=== PATIENT | male | born 1950 ===

== ENCOUNTER → 2018-06-13 18:51 | Outpatient (REF) | payer MEDICARE, OTHER, SELFPAY ==
[2018-06-13 19:17] LABS: Alanine Aminotransferase 31 IU/L (21-72); Albumin 3.9 g/dL (3.5-5.0); Albumin Globulin Ratio 1.8 (1.0-2.8); Alkaline Phosphatase 93 U/L (38-126); Aspartate Aminotransferase 18 IU/L (17-59); BUN Creatinine Ratio 17.5 (6-22); Bilirubin Total 0.4 mg/dL (0.2-1.3); Blood Urea Nitrogen 14 mg/dL (9-20); Calcium 9.4 mg/dL (8.4-10.2); Carbon Dioxide 34 mmol/L (22-32); Chloride 102 mmol/L (98-107); Cholesterol 189 mg/dL (140-199); Estimated Glomerular Filt Rate > 60.0 mL/min (>60); Globulin 2.2 g/dL (1.7-4.1); Glucose 94 mg/dL (80-110); HDL Cholesterol 31 mg/dL (40-60); HEMOLYSIS < 15 (0-50); LDL Cholesterol Calculated 129 mg/dL (<100); Potassium 4.4 mmol/L (3.4-5.1); Sodium 146 mmol/L (137-145); Total Protein 6.1 g/dL (6.3-8.2); Triglycerides 146 mg/dL (35-150)
[2018-06-13 19:48] LABS: Thyroid Stimulating Hormone 2.69 uIU/mL (0.47-4.68)
== END ==
LOC: LAB 18:51
PROVIDERS: Visit Provider Family Medicine
DX: H91.90 Unspecified hearing loss, unspecified ear (principal); R32 Unspecified urinary incontinence; N40.0 Benign prostatic hyperplasia without lower urinary tract symptoms; Z12.5 Encounter for screening for malignant neoplasm of prostate; I25.10 Atherosclerotic heart disease of native coronary artery without angina pectoris
CPT/HCPCS: 80053; 80061; 84153; 84443

== ENCOUNTER → 2018-07-03 14:20 | Outpatient (REF) | payer MEDICARE, OTHER, SELFPAY ==
[2018-07-03 15:11] LABS: Add Manual Diff / Slide Review NO; Basophils Percent Auto 1.3 % (0-2); Eosinophils Percent Auto 5.6 % (2-4); Hematocrit 39.2 % (41-53); Hemoglobin 12.8 g/dL (13.5-17.5); Mean Corpuscular HGB Conc 32.8 % (30-36); Mean Corpuscular Hemoglobin 29.2 PG (26-34); Monocytes Percent Auto 10.4 % (3-14); Neutrophils Absolute Auto 4300 /uL (3000-5900); Neutrophils Percent Auto 65.7 % (50-75); Platelet Count 335 X10^3/uL (150-400); Red Cell Distribution Width 14.8 % (11.6-14.8); White Blood Cell Count 6.5 X10^3/uL (4.5-11.0)
[2018-07-03 15:50] LABS: Ferritin 18.1 ng/mL (17.9-464)
[2018-07-03 16:20] LABS: Folate 5.6 ng/mL (2.76-20.0); Vitamin B12 231 pg/mL (239-931)
== END ==
LOC: LAB 14:20
PROVIDERS: Visit Provider Family Medicine
DX: D64.9 Anemia, unspecified (principal)
CPT/HCPCS: 36415; 82607; 82728; 82746; 85025

== ENCOUNTER → 2019-02-13 19:09 | Outpatient (ROUT) | payer MEDICARE, OTHER, SELFPAY ==
[2019-02-13 19:29] LABS: Add Manual Diff / Slide Review NO; Basophils Absolute Auto 100 /uL (0-100); Basophils Percent Auto 1.2 % (0-2); Eosinophils Absolute Auto 200 /uL (0-450); Eosinophils Percent Auto 3.7 % (2-4); Hematocrit 40.6 % (41-53); Lymphocytes Absolute Auto 800 /uL (1100-4500); Mean Corpuscular Hemoglobin 26.9 PG (26-34); Monocytes Absolute Auto 500 /uL (0-900); Monocytes Percent Auto 10.4 % (3-14); Neutrophils Absolute Auto 3200 /uL (1500-7000); Neutrophils Percent Auto 67.7 % (50-75); Platelet Count 335 X10^3/uL (150-400); Red Blood Cell Count 4.83 X10^6/uL (4.5-5.9); Red Cell Distribution Width 15.8 % (11.6-14.8); White Blood Cell Count 4.7 X10^3/uL (4.5-11.0)
[2019-02-13 19:40] LABS: Alanine Aminotransferase 23 IU/L (21-72); Aspartate Aminotransferase 23 IU/L (17-59); Cholesterol 133 mg/dL (140-199); HDL Cholesterol 27 mg/dL (40-60); LDL Cholesterol Calculated 80 mg/dL (<100); Triglycerides 130 mg/dL (35-150)
[2019-02-13 20:15] LABS: Ferritin 21.1 ng/mL (17.9-464)
[2019-02-13 20:45] LABS: Folate 14.6 ng/mL (2.76-20.0); Vitamin B12 293 pg/mL (239-931)
== END ==
PROVIDERS: Visit Provider Family Medicine
DX: E78.00 Pure hypercholesterolemia, unspecified (principal); N39.0 Urinary tract infection, site not specified; D64.9 Anemia, unspecified; E78.5 Hyperlipidemia, unspecified
CPT/HCPCS: 36415; 80061; 82607; 82728; 82746; 84450; 84460; 85025; 87086